=== PATIENT | female | born 1940 | race Caucasian/White ===

== ENCOUNTER 2021-12-31 03:13 | Observation (INO) ==
[2021-12-31] MEDS ORDERED: Ondansetron 4 MG/2 ML VIAL IVP PRN (05:15)
[2021-12-31] MEDS ORDERED: Naloxone 0.4 MG/ML INJ IVP PRN (05:15)
[2021-12-31] MEDS ORDERED: Melatonin 3 MG TABLET PO PRN (05:15)
[2021-12-31] MEDS: DilTIAZem 50 MG/50 ML IV.SOLN IVC SCH ×2 (05:38→10:37)
[2021-12-31] MEDS ORDERED: Dextrose 4 GM Chewable Tablets PO PRN ×2 (05:39)
[2021-12-31] MEDS ORDERED: D5% in Water 1,000 ML IVC PRN (05:39)
[2021-12-31] MEDS ORDERED: *HR* Dextrose 50 % in Water (Syg) 50 ML SYRINGE IVP PRN (05:39)
[2021-12-31] MEDS ORDERED: Acetaminophen 325 MG TABLET PO PRN (06:00)
[2021-12-31] MEDS ORDERED: Perflutren Lipid Microsphere 1.3 ML in 0.9 % Sodium Chloride 8.7 ML IVP PRN (06:08)
[2021-12-31 06:09] LABS: Hemoglobin 11.4 g/dL (11.5-15.4)
[2021-12-31 06:11] LABS: Hematocrit 33.7 % (35.3-44.9); Immature Platelets 1.7 % (1.1-6.1); Mean Corpuscular HGB Conc 33.8 g/dL (31.6-35.5); Mean Corpuscular Hemoglobin 32.8 pg (28.0-33.3); Mean Corpuscular Volume 96.8 fL (83.0-100.0); Mean Platelet Volume 9.6 fL (9.4-12.4); Red Blood Count 3.48 M/mcL (3.82-4.97); Red Cell Distribution Width 15.6 % (11.5-14.5); White Blood Count 3.6 K/mcL (4.3-11.1)
[2021-12-31 06:20] LABS: INR 1.2; Prothrombin Time 13.3 Seconds (9.4-12.1)
[2021-12-31 06:24] LABS: Alanine Aminotransferase 10 Units/L (7-52); Albumin 3.8 g/dL (3.5-5.7); Albumin/Globulin Ratio 1.7 (1.1-2.2); Alkaline Phosphatase 42 Units/L (34-104); Aspartate Amino Transferase 17 Units/L (13-39); BUN/Creatinine Ratio 9 (6-26); Bilirubin,Total 1.3 mg/dL (0.3-1.0); Blood Urea Nitrogen 6 mg/dL (8-23); Calcium 9.3 mg/dL (8.6-10.3); Carbon Dioxide 27 mEq/L (23-29); Chloride 113 mEq/L (98-107); Globulin 2.2 g/dL (2.4-3.5); Glucose 112 mg/dL (70-105); Osmolality,Calculated 300 (280-300); Potassium 3.4 mEq/L (3.5-5.1); Sodium 146 mEq/L (136-145); eGFR For African Americans > 60 (> 60); eGFR For Non-African Americans > 60 (> 60)
[2021-12-31 06:36] LABS: Thyroid Stimulating Hormone 0.884 mcIU/mL (0.340-5.600)
[2021-12-31] MEDS ORDERED: 0.45 % Sodium Chloride w/KCl 20 MEQ/1,000 ML MLS IVC SCH (06:45)
[2021-12-31] MEDS: Insulin LISPRO 300 UNITS/3 ML VIAL SUBQ SCH ×3 (08:08→16:41)
[2021-12-31] MEDS: predniSONE 10 MG TABLET PO SCH (11:24)
[2021-12-31] MEDS: Gabapentin 300 MG CAPSULE PO SCH ×2 (14:14→20:05)
[2021-12-31] MEDS: Pyridostigmine Br 60 MG TABLET PO SCH ×2 (14:14→20:05)
[2021-12-31] MEDS: Carbidopa/Levodopa 25/100 TABLET PO SCH ×2 (15:08→20:05)
[2021-12-31] MEDS ORDERED: *HR* Metformin 500 MG TABLET PO SCH (17:00)
[2022-01-01] MEDS: Pyridostigmine Br 60 MG TABLET PO SCH (08:40)
[2022-01-01] MEDS: predniSONE 10 MG TABLET PO SCH (08:40)
[2022-01-01] MEDS: Gabapentin 300 MG CAPSULE PO SCH (08:40)
[2022-01-01] MEDS: Carbidopa/Levodopa 25/100 TABLET PO SCH (08:40)
[2022-01-01] MEDS: Insulin LISPRO 300 UNITS/3 ML VIAL SUBQ SCH ×2 (08:49→12:23)
[2022-01-01] MEDS ORDERED: Isosorbide MONOnitrate (24 HR) 60 MG TAB.ER.24H PO SCH (09:00)
[2022-01-01 12:02] VITALS: BP 121/64; PULSE 67; TEMP 97.7; O2SAT 99
== END 2022-01-01 13:35 | disposition home or self-care (01) ==
LOC: 3NENU
PROVIDERS: ADMIT Student in an Organized Health Care Education/Training Program; ATTEND Student in an Organized Health Care Education/Training Program